=== PATIENT | female | born 1950 | race Caucasian/White ===

== ENCOUNTER 2016-06-08 11:17 | Emergency (ER) | payer OTHER, MEDICARE ==
[~2016-06-08] VITALS: Ht 167.6 cm; Wt 73.8 kg
[~2016-06-08 11:17] MED LIST: CHOL100010 PO; CIPR-255 PO; LOSA100T2 PO; LOSA100T26 PO; MAGN400T6 PO; MISCCAP80 PO
[2016-06-08 11:19] VITALS: Ht 167.6 cm; Wt 73.8 kg
--- NOTE | 2016-06-08 11:42 | EMERGENCY ROOM VISIT NOTE ---
History First contact with patient: 11:24 Chief Complaint: CHEST PAIN Stated Complaint: CP, TIGHTNESS, STOMACH/VOMITING History of Present Illness The patient is a 66 year old female who presents to the Emergency Room with complaints of intermittent chest pain over the past 2 days. The patient reports that she has had tightness in her chest and epigastric discomfort on and off for the past few days. She states that the pain tends to last for approximately 10 minutes when it occurs. She states it tends to be worse at night and does wake her up from sleep. She has felt bloated, but denies any changes in bowel movements or pain in her lower abdomen. She had 2 episodes of vomiting this morning. The patient rates the discomfort a 5/10. She has not been taking any medication for the pain. She reports she has had a decreased appetite. The patient denies any cardiac history, but does report that her mother had an WA at age 68 and her brother had an WA at age 55. The patient does not smoke. She does have a history of hypertension. She denies any diabetes or hyperlipidemia. The patient denies any shortness of breath, hematemesis, hematochezia, cough, upper respiratory symptoms, fevers or chills. Review of Systems A complete 10-point Review of Systems was discussed with the patient, with pertinent positives and negatives listed in the History of Present Illness. All remaining Review of Systems questions can be considered negative unless otherwise specified. Past Medical/Surgical History Medical Problems: (1) HTN (hypertension) Social History Smoking Status: Never Smoker Marital Status: Housing Status: lives with significant other Current/Historical Medications Scheduled Sepsjdt-Xgaiifwwg-Ulaw (Calcium & Magnesium + Zin 334-134-5 mg), 1 TAB PO DAILY Cholecalciferol (Vitamin D3), 2,000 UNITS PO DAILY Losartan Potassium & Hydrochlo (Losartan Potassium/Hydroc), 1 TAB PO QAM Losartan Potassium & Hydrochlo (Hyzaar), 0.5 TAB PO QPM Omeprazole (Prilosec), 40 MG PO DAILY Allergies Coded Allergies: No Known Allergies (Unverified , 12/09/09) Physical Exam Vital Signs Date Time Temp Pulse Resp B/P Pulse Ox O2 Delivery O2 Flow Rate FiO2 06/08/16 16:28 37.0 100 18 130/83 96 06/08/16 14:55 100 18 130/83 96 Room Air 06/08/16 12:52 78 13 151/87 96 Room Air 06/08/16 11:46 74 06/08/16 11:41 Room Air 06/08/16 11:41 Room Air 06/08/16 11:19 37.0 98 18 153/95 95 Room Air Physical Exam VITALS: Vitals are noted on the nurse's note and reviewed by myself. Vital signs stable. GENERAL: This is a 66-year-old female, in no acute distress, nondiaphoretic, well-developed well-nourished. SKIN: Capillary reflex less than 2 seconds. HEENT: Normocephalic. PERRLA. EOMI. Nares patent. Mucous membranes moist. Neck is supple without nuchal rigidity. HEART: Regular rate and rhythm without murmurs gallops or rubs. LUNGS: Clear to auscultation bilaterally without wheezes, rales or rhonchi. No retractions or accessory muscle use. ABDOMEN: Positive bowel sounds x 4. Soft, nondistended, nontender to palpation. NEURO: Patient was alert and oriented to person place and time. Medical Decision & Procedures ER Provider Diagnostic Interpretation: CHEST ONE VIEW PORTABLE CLINICAL HISTORY: chest pain dyspnea COMPARISON STUDY: No previous studies for comparison. FINDINGS: Lungs are clear. Diaphragms are smooth. No evidence for cardiac enlargement. IMPRESSION: Negative chest. Laboratory Results 06/08/16 11:50 Red Blood Count 4.59, Mean Corpuscular Volume 95.4, Mean Corpuscular Hemoglobin 32.7, Mean Corpuscular Hemoglobin Concent 34.2, Mean Platelet Volume 9.7, Neutrophils (%) (Auto) 77.6, Lymphocytes (%) (Auto) 12.9, Monocytes (%) (Auto) 8.6, Eosinophils (%) (Auto) 0.3, Basophils (%) (Auto) 0.3, Neutrophils # (Auto) 5.98, Lymphocytes # (Auto) 0.99, Monocytes # (Auto) 0.66, Eosinophils # (Auto) 0.02, Basophils # (Auto) 0.02 06/08/16 11:50 Test 06/08/16 11:50 06/08/16 11:52 06/08/16 15:40 White Blood Count 7.69 K/uL (4.8-10.8) Red Blood Count 4.59 M/uL (4.2-5.4) Hemoglobin 15.0 g/dL (12.0-16.0) Hematocrit 43.8 % (37-47) Mean Corpuscular Volume 95.4 fL (80-100) Mean Corpuscular Hemoglobin 32.7 pg (25-34) Mean Corpuscular Hemoglobin Concent 34.2 g/dl (32-36) Platelet Count 227 K/uL (130-400) Mean Platelet Volume 9.7 fL (7.4-10.4) Neutrophils (%) (Auto) 77.6 % Lymphocytes (%) (Auto) 12.9 % Monocytes (%) (Auto) 8.6 % Eosinophils (%) (Auto) 0.3 % Basophils (%) (Auto) 0.3 % Neutrophils # (Auto) 5.98 K/uL (1.4-6.5) Lymphocytes # (Auto) 0.99 K/uL (1.2-3.4) Monocytes # (Auto) 0.66 K/uL (0.11-0.59) Eosinophils # (Auto) 0.02 K/uL (0-0.5) Basophils # (Auto) 0.02 K/uL (0-0.2) RDW Standard Deviation 44.8 fL (36.4-46.3) RDW Coefficient of Variation 12.8 % (11.5-14.5) Immature Granulocyte % (Auto) 0.3 % Immature Granulocyte # (Auto) 0.02 K/uL (0.00-0.02) Anion Gap 7.0 mmol/L (3-11) Est Creatinine Clear Calc Drug Dose 65.1 ml/min Estimated GFR () 81.6 Estimated GFR (Non- 70.4 BUN/Creatinine Ratio 16.1 (10-20) Calcium Level 9.1 mg/dl (8.5-10.1) Total Bilirubin 0.9 mg/dl (0.2-1) Aspartate Amino Transf (AST/SGOT) 16 U/L (15-37) Alanine Aminotransferase (ALT/SGPT) 15 U/L (12-78) Alkaline Phosphatase 80 U/L (45-117) Total Protein 7.4 gm/dl (6.4-8.2) Albumin 3.9 gm/dl (3.4-5.0) Globulin 3.5 gm/dl (2.5-4.0) Albumin/Globulin Ratio 1.1 (0.9-2) Lipase 154 U/L (73-393) Bedside Troponin I 0.000 ng/ml (0-0.045) Urine Color DK YELLOW Urine Appearance CLEAR (CLEAR) Urine pH 6.5 (4.5-7.5) Urine Specific Bailey 1.025 (1.000-1.030) Urine Protein 1+ (NEG) Urine Glucose (UA) NEG (NEG) Urine Ketones 3+ (NEG) Urine Occult Blood NEG (NEG) Urine Nitrite NEG (NEG) Urine Bilirubin NEG (NEG) Urine Urobilinogen NEG (NEG) Urine Leukocyte Esterase TRACE (NEG) Urine WBC (Auto) 1-5 /hpf (0-5) Urine RBC (Auto) 5-10 /hpf (0-4) Urine Hyaline Casts (Auto) 5-10 /lpf (0-5) Urine Epithelial Cells (Auto) >30 /lpf (0-5) Urine Bacteria (Auto) NEG (NEG) Medications Administered Medications (Trade) Dose Ordered Sig/Delilah Route Start Time Stop Time Status Last Admin Dose Admin Perflutren Lipid Microsphere (Definity) 2 ml ONE ONCE IV 06/08/16 14:43 06/08/16 14:44 DC 06/08/16 14:43 2 ML Lidocaine HCl (Viscous Lidocaine 2% Soln) 20 ml STK-MED ONCE .ROUTE 06/08/16 15:21 06/08/16 15:25 DC 06/08/16 15:33 20 ML Al Hydroxide/Mg Hydroxide (Maalox Susp) 30 ml STK-MED ONCE .ROUTE 06/08/16 15:22 06/08/16 15:25 DC 06/08/16 15:32 30 ML ECG Rate (beats per minute): 87 Rhythm: normal sinus Findings: no acute ischemic change, no ectopy Change: no significant change (no change from ekg 12/09/09) Medical Decision Differential diagnosis includes acute coronary syndrome, pulmonary embolism, pneumothorax, pericarditis, myocarditis, endocarditis, anxiety, musculoskeletal pain, GERD, costochondritis, pneumonia, among others. The patient was evaluated as above. Labs were drawn and IV access was obtained. Imaging studies were performed and read by radiology as above. Stress echo was performed at cardiopulmonary lab under the supervision of Dr. Cade. The patient was reassessed multiple times during their stay in the emergency department and remained in stable condition. The patient is a 66-year-old female who presents today complaining of chest pain and epigastric discomfort. The patient did have an episode of vomiting this morning. Labs revealed no leukocytosis, anemia or concerning electrolyte abnormalities. Troponin was not elevated. EKG was interpreted by myself and showed a normal sinus rhythm without evidence of ischemia. The patient's symptoms are more suggestive of a gastritis or peptic ulcer disease than a cardiac source of the chest pain. However, given the patient's age and family history of cardiac disease, I did feel that further workup was necessary to rule out acute coronary syndrome. I did speak with Dr. Cade at [facility] cardiology, who agreed to perform a stress test on the patient prior to discharge. Stress test was performed without any events. The patient was given a GI cocktail for her symptoms. She will be treated with Prilosec and instructed to follow closely with her primary care provider. She was instructed to return here if she has worsening or any new/concerning symptoms. Based on the patient's presentation, lab results, and imaging studies, I feel the patient is stable for outpatient treatment. The patient was independently evaluated by Dr. Summers, ED attending physician, who agreed with my assessment and treatment plan. Discharge instructions were reviewed with the patient. The patient verbalized understanding of my assessment and treatment plan and was discharged home in good condition. Impression Primary Impression: Epigastric pain Additional Impression: Substernal chest pain Departure Information Dispostion Home / Self-Care Condition GOOD Prescriptions Omeprazole (PRILOSEC) 40 Mg Cap 40 MG PO DAILY for 14 Days, #14 CAP Prov: Kaycee Brito .DORA 06/08/16 Referrals Marti Dodge M.D. (PCP) Patient Instructions ED GERD, [facility] Additional Instructions You have been treated in the Emergency Department for your Non-Cardiac Chest Pain. Laboratory results and Imaging Studies have ruled out any acute cardiac or pulmonary cause of your chest pain. Prilosec as prescribed. [place] diet for the next few weeks. You should schedule a follow-up appointment with your Primary Care Provider in 2 -3 days for further evaluation from today's Emergency Department visit. Return to the Emergency Department if your current symptoms worsen despite treatment course outlined above, or if you develop any of the following symptoms : worsening chest pain, associated jaw/arm pain, nausea, dizziness, shortness of breath, bloody cough, or fainting. Problem Qualifiers
[2016-06-08] MEDS ORDERED: CHOL2000 PO (11:59)
[2016-06-08] MEDS ORDERED: CALC-478 PO (12:00)
[2016-06-08 12:01] LABS: BASO % 0.3 %; BASO ABS # 0.02 K/uL (0-0.2); COMPLETE YES; EOS % 0.3 %; HEMATOCRIT 43.8 % (37-47); IG% 0.3 %; LYMPH % 12.9 %; LYMPH ABS # 0.99 K/uL (1.2-3.4); MEAN CELL VOLUME 95.4 fL (80-100); MEAN CORPUSCULAR HEMOGLOBIN 32.7 pg (25-34); MEAN CORPUSCULAR HGB CONC 34.2 g/dl (32-36); MEAN PLATELET VOLUME 9.7 fL (7.4-10.4); MONO % 8.6 %; NEUT % 77.6 %; PLATELET COUNT 227 K/uL (130-400); RED BLOOD COUNT 4.59 M/uL (4.2-5.4); WHITE BLOOD COUNT 7.69 K/uL (4.8-10.8)
[2016-06-08 12:21] LABS: BUN/CREATININE RATIO 16.1 (10-20); CALCIUM 9.1 mg/dl (8.5-10.1); CREATININE 0.85 mg/dl (0.60-1.20); POTASSIUM 4.5 mmol/L (3.5-5.1)
[2016-06-08 12:24] LABS: ALB/GLOB RATIO 1.1 (0.9-2)
--- NOTE | 2016-06-08 12:28 | DIAGNOSTIC IMAGING REPORT ---
CHEST ONE VIEW PORTABLE CLINICAL HISTORY: chest pain dyspnea COMPARISON STUDY: No previous studies for comparison. FINDINGS: Lungs are clear. Diaphragms are smooth. No evidence for cardiac enlargement. IMPRESSION: Negative chest. Electronically signed by: Nickolas Cabrales M.D. 06/08/2016 12:27 PM Dictated Date/Time: 06/08/2016 12:27 PM
[2016-06-08] MEDS ORDERED: PERFLUTREN LIPID MICROSPHERE (DEFINITY) IV ONE (14:43)
[2016-06-08] MEDS ORDERED: GI COCKTAIL PO STA (14:57)
[2016-06-08] MEDS ORDERED: LIDOCAINE HCL 2% VISC SOLN 20 ML UDC ONE (15:21)
[2016-06-08] MEDS ORDERED: ALUMINUM/MAGNESIUM SUSP 30 ML UDC ONE (15:22)
--- NOTE | 2016-06-08 15:58 | EMERGENCY ROOM VISIT NOTE ---
ED Visit Note First contact with patient: 11:24 Patient was seen by our PA/SENIOR CREDIT ANALYST. I was involved in the patient's care and did evaluate the patient myself. I was involved in the care throughout the ER stay. The patient presents with epigastric and chest pain. She has had some nausea and vomiting. Cardiac workup here was benign. She underwent a stress test that was unremarkable for cardiac ischemia. She will be treated for gastritis and possible reflux. She can be discharged home.
[2016-06-08] MEDS ORDERED: OMEP40CA41 PO ×2 (16:11→16:12)
[2016-06-08 16:17] LABS: URINE APPEARANCE CLEAR (CLEAR); URINE BILIRUBIN NEG (NEG); URINE COLOR DK YELLOW; URINE EPITHELIAL CELL AUTO >30 /lpf (0-5); URINE NITRITE NEG (NEG); URINE PH 6.5 (4.5-7.5); URINE SPECIFIC GRAVITY 1.025 (1.000-1.030); UROBILINOGEN NEG (NEG); ZZUR CULT IF INDIC CLEAN CATCH NO
[2016-06-08 16:20] LABS: MANUAL MICROSCOPIC REQUIRED? NO; REVIEW REQ? NO
[2016-06-08 16:28] VITALS: BP 130/83; PULSE 100; TEMP 37; O2SAT 96
--- NOTE | 2016-06-09 08:45 | EXERCISE STRESS ECHO ---
*NOTICE TO RECEIVING [employer] This information is strictly Confidential and protected under [place] law. [place] law prohibits you from making any further disclosure of this information unless further disclosure is expressly permitted by the written consent of the person to whom it pertains or is authorized by law. A general authorization for the release of medical or other information is not sufficient for this purpose. Hospital accepts no responsibility if the information is made available to any other person, INCLUDING THE PATIENT. Interpretation Summary * Name: DARIO SANTACRUZ Study Date: 06/08/2016 01:07 PM BP: 145/81 mmHg * Patient [facility]: [facility] HR: 75 * : 1950 (M/d/yyyy) Gender: Female Height: 66 in * Age: 66 yrs Ethnicity: [place] Weight: 162 lb * Ordering Physician: Kaycee Brito * Referring Physician: JAYNE * Performed By: Daphnie Sauceda RDCS * * Reason For Study: CHEST PAIN * BSA: 1.8 m2 * History: CHEST PAIN, NAUSEA * -- Conclusions -- * Nonischemic exercise stress echocardiogram. * No arrhythmias. * Normal HR and BP response to exercise. * Markedly reduced exercise tolerance. * At rest, ormal LV chamber size and wall thickness. * Normal systolic function, EF 55-60% * No segmental left ventricular wall motion abnormalities are noted. * Grade II diastolic dysfunction. * No significant valvular pathology. Procedure Details * ECHOEX, CPT #07310 * A contrast injection of Definity was performed to improve assessment of LV function. * Contrast was injected into an intravenous site in the left arm. * One vial of Definity ultrasound contrast was diluted in normal saline to a total volume of 10 ml. A total of '4' ml of solution was administered during imaging. * Lot # [id number] of Definity utilized for procedure. * Expiration date APR 15. * The attending nurse who injected the contrast agent was BUDDY LEWIS RN. Left Ventricle * The left ventricle is normal in size. * There is normal left ventricular wall thickness. * Ejection Fraction = 55-60%. * Left ventricular systolic function is normal. * No segmental left ventricular wall motion abnormalities are noted. * Resting wall motion: Normal. Stress wall motion: Appropriate increase in Left ventricular systolic function and decrease in cavity size. No stress induced segmental wall motion abnormalities. Right Ventricle * The right ventricular cavity size is normal (basal dimension <4.2 cm in right ventricular apical 4-chamber view). * The right ventricular systolic function is normal as assessed by tricuspid annular plane systolic excursion (TAPSE) (normal >1.5 cm). Atria * The left atrial size is normal. * Right atrial size is normal. * No ASD detected; PFO is not assessed. Mitral Valve * The mitral valve is normal in structure and function. Tricuspid Valve * The tricuspid valve is normal in structure and function. Aortic Valve * The aortic valve is normal in structure and function. Pulmonic Valve * The pulmonary valve is not well seen, but the Doppler examination is normal without significant regurgitation or stenosis. Great Vessels * The aortic root is normal size. Pericardium * There is no pericardial effusion. Stress Parameters * Normal baseline electrocardiogram. * Stress ECG: No ST changes. No arrhythmias. * No arrhythmia were noted with stress. * The stress portion of this study was personally supervised by the undersigned interpreting physician. * Rest heart rate was '75' BPM. * Rest blood pressure was '145/81' * Maximum heart rate achieved was 160 bpm. * Maximum heart rate was 105 % of maximum age-predicted heart rate. * Maximum blood pressure was '187/84' * Total exercise time was '3:20' * Maximum exercise MET level achieved was '5.00' METS * Maximum treadmill speed was '2.50' miles per hour. * Maximum treadmill elevation was '12.00'% grade. * Exercise was terminated due to 'ACHIEVING TARGET HR' Left Ventricular Diastolic Function * Diastolic dysfunction, Grade II (pseudonormalization pattern). MMode 2D Measurements and Calculations IVSd 0.76 cm IVSs 1.3 cm LVIDd 4.5 cm LVIDs 3.4 cm LVPWd 0.66 cm LVPWs 1.3 cm IVS/LVPW 1.2 FS 25.3 % EDV(Teich) 94.7 ml ESV(Teich) 47.3 ml EF(Teich) 50.1 % EDV(cubed) 94.0 ml ESV(cubed) 39.1 ml EF(cubed) 58.4 % % IVS thick 65.7 % % LVPW thick 97.5 % LV mass(C)d 99.7 grams LV mass(C)dI 54.5 grams/m\S\2 LV mass(C)s 144.9 grams LV mass(C)sI 79.2 grams/m\S\2 SV(Teich) 47.4 ml SI(Teich) 25.9 ml/m\S\2 SV(cubed) 54.9 ml SI(cubed) 30.0 ml/m\S\2 Ao root diam 2.8 cm Ao root area 6.0 cm\S\2 LA dimension 3.3 cm LA/Ao 1.2 LVAd ap4 21.8 cm\S\2 LVLd ap4 6.8 cm EDV(MOD-sp4) 59.0 ml EDV(sp4-el) 59.4 ml LVAs ap4 13.7 cm\S\2 LVLs ap4 5.6 cm ESV(MOD-sp4) 28.9 ml ESV(sp4-el) 28.7 ml EF(MOD-sp4) 51.0 % EF(sp4-el) 51.7 % LVAd ap2 22.1 cm\S\2 LVLd ap2 7.1 cm EDV(MOD-sp2) 56.4 ml EDV(sp2-el) 58.4 ml LVAs ap2 13.4 cm\S\2 LVLs ap2 6.0 cm ESV(MOD-sp2) 26.9 ml ESV(sp2-el) 25.2 ml EF(MOD-sp2) 52.3 % EF(sp2-el) 56.9 % LVLd %diff 4.4 % EDV(MOD-bp) 58.1 ml LVLs %diff 7.2 % ESV(MOD-bp) 28.4 ml EF(MOD-bp) 51.1 % SV(MOD-sp4) 30.1 ml SI(MOD-sp4) 16.5 ml/m\S\2 SV(MOD-sp2) 29.5 ml SI(MOD-sp2) 16.1 ml/m\S\2 SV(MOD-bp) 29.7 ml SI(MOD-bp) 16.2 ml/m\S\2 SV(sp4-el) 30.7 ml SI(sp4-el) 16.8 ml/m\S\2 SV(sp2-el) 33.3 ml SI(sp2-el) 18.2 ml/m\S\2
== END 2016-06-08 16:33 | disposition home or self-care (01) ==
LOC: C.EDB 11:18 → C.EDC 16:33
DX: R07.2 Precordial pain (principal); R10.13 Epigastric pain; I10 Essential (primary) hypertension; Z79.899 Other long term (current) drug therapy

== ENCOUNTER → 2016-07-07 | Outpatient (CLI) | payer OTHER, MEDICARE ==
[~2016-07-07] MED LIST changes: +ASPI325T45 PO; +CALC-478 PO; -CHOL100010 PO; +CHOL2000 PO; -CIPR-255 PO; +HYZ/10015 PO; +HYZ/50125 PO; -LOSA100T26 PO; +LOSA100T33 PO; -MAGN400T6 PO; -MISCCAP80 PO; +MULT-506 PO; +NRV5 PO
== END | disposition home or self-care (01) ==
LOC: C.LAB 07:25
PROVIDERS: ATTEND Family Medicine
DX: R53.81 Other malaise (principal)

== ENCOUNTER 2017-02-15 08:36 | Observation (INO) | payer OTHER, MEDICARE ==
[~2017-02-15] VITALS: Ht 162.6 cm; Wt 76.1 kg
[~2017-02-15 08:36] MED LIST changes: -ASPI325T45 PO; -HYZ/10015 PO; -HYZ/50125 PO; -MULT-506 PO; -NRV5 PO
[2017-02-15 09:44] LABS: BASO % 0.7 %; BASO ABS # 0.03 K/uL (0-0.2); COMPLETE YES; EOS % 3.2 %; HEMATOCRIT 41.8 % (37-47); IG% 0.2 %; LYMPH % 41.7 %; MEAN CELL VOLUME 97.2 fL (80-100); MEAN CORPUSCULAR HEMOGLOBIN 32.8 pg (25-34); MEAN CORPUSCULAR HGB CONC 33.7 g/dl (32-36); MEAN PLATELET VOLUME 9.8 fL (7.4-10.4); MONO % 10.6 %; NEUT % 43.6 %; PLATELET COUNT 219 K/uL (130-400); WHITE BLOOD COUNT 4.32 K/uL (4.8-10.8)
[2017-02-15 09:51] LABS: BLOOD UREA NITROGEN 13 mg/dl (7-18); CALCIUM 8.8 mg/dl (8.5-10.1); CARBON DIOXIDE 26 mmol/L (21-32); CHLORIDE 100 mmol/L (98-107); CREATININE 0.79 mg/dl (0.60-1.20); GLUCOSE 99 mg/dl (70-99); POTASSIUM 3.5 mmol/L (3.5-5.1); SODIUM 135 mmol/L (136-145)
[2017-02-15] MEDS ORDERED: MULT-506 PO (10:17)
[2017-02-15] MEDS ORDERED: ASPI325T45 PO (10:18)
[2017-02-15] MEDS ORDERED: HYZ/10015 PO (10:18)
[2017-02-15] MEDS ORDERED: HYZ/50125 PO (10:18)
--- NOTE | 2017-02-15 10:45 | DIAGNOSTIC IMAGING REPORT ---
CHEST ONE VIEW PORTABLE HISTORY: Atypical Chest Pain COMPARISON: Chest 06/08/2016. FINDINGS: The lungs are clear. Cardiac silhouette is normal in size. No pleural effusions. No pneumothorax. IMPRESSION: No acute process. Electronically signed by: Chicho Edmonds M.D. 02/15/2017 10:43 AM Dictated Date/Time: 02/15/2017 10:42 AM
[2017-02-15] MEDS ORDERED: ACETAMINOPHEN 325 MG TAB PO PRN (11:45)
[2017-02-15] MEDS ORDERED: ONDANSETRON INJ 2 MG/ML 2 ML VIAL IV PRN (11:45)
--- NOTE | 2017-02-15 11:54 | History and Physical ---
History & Physical Date & Time of Service: Feb 15, 2017 at 11:47 Chief Complaint: Chest Pain Primary Care Physician: Marti Dodge M.D. History of Present Illness Source: patient 66 year old F with history of HTN on Losartan-HCTZ for hypertension. Was seen in May 2016 for chest pain and epigastric pain with below unremarkable stress test Nonischemic exercise stress echocardiogram. No arrhythmias. Normal HR and BP response to exercise. Markedly reduced exercise tolerance. At rest, normal LV chamber size and wall thickness. Normal systolic function, EF 55-60% No segmental left ventricular wall motion abnormalities are noted. Grade II diastolic dysfunction. No significant valvular pathology Patient returns to the ED today after experiencing left chest pain beneath left breast. Patient also reports she had 4 alcoholic beverages yesterday night for a celebration and this alcohol use is not typically for her. When she measured her blood pressure, it was elevated. She took 2 aspirins and did not miss her blood pressure medications. Left sided chest pain resolved in 20 minutes as per patient. Denies palpitations or shortness of breath when she had pain symptoms. Presented to the ED with blood pressure 153/95., HR 98 HR. EKG 91 beats per minute . Sinus rhythm with occasional Premature ventricular complexes Otherwise normal EKG. Troponin at 9 AM negative. CXR The lungs are clear. Cardiac silhouette is normal in size. No pleural effusions. No pneumothorax. Patient seen by hospitalist medical team. Denies chest pain at present. Breathing comfortably on room air. Patient reports that she is trying to return home today to take care of ailing family member. She agrees for some further workup Past Medical/Surgical History Medical Problems: (1) HTN (hypertension) Status: Chronic Surgical Problems: (1) History of appendectomy Status: Resolved Family History FH: heart disease Hypertension Social History Smoking Status: Never Smoker Alcohol Use: 4 alcoholic drinks yesterday Marital Status: Immunizations History of Influenza Vaccine: No History of Tetanus Vaccine?: Yes Tetanus Immunization Date: Dec 09, 2001 History of Pneumococcal: No History of Hepatitis B Vaccine: No Multi-Drug Resistant Organisms History of MDRO: No Allergies Coded Allergies: Cat Dander (Unverified Allergy, Mild, , 02/15/17) Maple Tree (Unverified Allergy, Mild, , 02/15/17) Home Medications Scheduled Aspirin (Aspirin), 650 MG PO UD Jgdblwf-Zmnwgannu-Rphc (Calcium & Magnesium + Zin 334-134-5 mg), 1 TAB PO DAILY Cholecalciferol (Vitamin D3), 2,000 UNITS PO DAILY Hctz/Losartan (Hyzaar 25MG/100MG), 1 TAB PO DAILY Hctz/Losartan (Hyzaar 12.5MG/50MG), 1 TAB PO HS Multivitamin (Multivitamin), 1 TAB PO DAILY Review of Systems Constitutional: No fever Eyes: No worsening of vision ENT: No unusual epistaxis, No nasal symptoms, No sore throat, No trouble swallowing Respiratory: No cough, No wheezing, No shortness of breath Cardiovascular: + chest pain, No edema, No palpitations Abdomen: No pain, No nausea, No vomiting, No diarrhea, No constipation Musculoskeletal: No joint pain, No muscle pain, No swelling, No calf pain Genitourinary - Female: No dysuria Neurologic: No numbness/tingling Psychiatric: No substance abuse Endocrine: No fatigue Hematologic / Lymphatic: No abnormal bleeding/bruising, No clotting problems Integumentary: No rash, No itch Physical Exam Vital Signs Date Time Temp Pulse Resp B/P (MAP) Pulse Ox O2 Delivery O2 Flow Rate FiO2 02/15/17 10:38 76 18 127/74 97 Room Air 02/15/17 09:05 77 02/15/17 09:04 87 18 133/82 97 Room Air 02/15/17 09:00 96 Room Air 02/15/17 08:50 36.5 94 18 191/80 99 Room Air General Appearance: no apparent distress Head: normocephalic, atraumatic Eyes: normal inspection, EOMI, sclerae normal ENT: normal ENT inspection, hearing grossly normal, pharynx normal Neck: supple, no JVD, trachea midline Respiratory/Chest: chest non-tender, lungs clear, normal breath sounds, no respiratory distress, no accessory muscle use Cardiovascular: regular rate, rhythm, no edema, no JVD, no murmur, normal peripheral pulses Abdomen/GI: normal bowel sounds, non tender, soft Back: normal inspection, no CVA tenderness, no muscle spasm, normal range of motion Extremities/Musculoskelatal: normal inspection, no calf tenderness, normal capillary refill, no pedal edema, normal range of motion Neurologic/Psych: no motor/sensory deficits, alert, normal reflexes Skin: normal color, warm/dry, no rash Diagnostics Laboratory Results Results Past 24 Hours Test 02/15/17 09:00 Range/Units White Blood Count 4.32 4.8-10.8 K/uL Red Blood Count 4.30 4.2-5.4 M/uL Hemoglobin 14.1 12.0-16.0 g/dL Hematocrit 41.8 37-47 % Mean Corpuscular Volume 97.2 80-100 fL Mean Corpuscular Hemoglobin 32.8 25-34 pg Mean Corpuscular Hemoglobin Concent 33.7 32-36 g/dl Platelet Count 219 130-400 K/uL Mean Platelet Volume 9.8 7.4-10.4 fL Neutrophils (%) (Auto) 43.6 % Lymphocytes (%) (Auto) 41.7 % Monocytes (%) (Auto) 10.6 % Eosinophils (%) (Auto) 3.2 % Basophils (%) (Auto) 0.7 % Neutrophils # (Auto) 1.88 1.4-6.5 K/uL Lymphocytes # (Auto) 1.80 1.2-3.4 K/uL Monocytes # (Auto) 0.46 0.11-0.59 K/uL Eosinophils # (Auto) 0.14 0-0.5 K/uL Basophils # (Auto) 0.03 0-0.2 K/uL RDW Standard Deviation 44.2 36.4-46.3 fL RDW Coefficient of Variation 12.4 11.5-14.5 % Immature Granulocyte % (Auto) 0.2 % Immature Granulocyte # (Auto) 0.01 0.00-0.02 K/uL D-Dimer 270 0-500 ug/L FEU Sodium Level 135 136-145 mmol/L Potassium Level 3.5 3.5-5.1 mmol/L Chloride Level 100 98-107 mmol/L Carbon Dioxide Level 26 21-32 mmol/L Anion Gap 10.0 3-11 mmol/L Blood Urea Nitrogen 13 7-18 mg/dl Creatinine 0.79 0.60-1.20 mg/dl Est Creatinine Clear Calc Drug Dose 68.1 ml/min Estimated GFR () 89.1 Estimated GFR (Non- 76.9 BUN/Creatinine Ratio 16.0 10-20 Random Glucose 99 70-99 mg/dl Calcium Level 8.8 8.5-10.1 mg/dl Total Creatine Kinase 81 26-192 U/L Creatine Kinase MB 0.8 0.5-3.6 ng/ml Creatine Kinase MB Ratio 1.0 0-3.0 Troponin I < 0.015 0-0.045 ng/ml Diagnostic Radiology The lungs are clear. Cardiac silhouette is normal in size. No pleural effusions. No pneumothorax CXR normal EKG EKG 91 beats per minute . Sinus rhythm with occasional Premature ventricular complexes Otherwise normal EKG Normal EKG Impression Assessment and Plan 66 year old F with history of HTN on Losartan-HCTZ for hypertension. Was seen in May 2016 for chest pain and epigastric pain with below unremarkable stress test Nonischemic exercise stress echocardiogram. No arrhythmias. Normal HR and BP response to exercise. Markedly reduced exercise tolerance. At rest, normal LV chamber size and wall thickness. Normal systolic function, EF 55-60% No segmental left ventricular wall motion abnormalities are noted. Grade II diastolic dysfunction. No significant valvular pathology Patient returns to the ED today after experiencing left chest pain beneath left breast. Patient also reports she had 4 alcoholic beverages yesterday night for a celebration and this alcohol use is not typically for her. When she measured her blood pressure, it was elevated. She took 2 aspirins and did not miss her blood pressure medications. Left sided chest pain resolved in 20 minutes as per patient. Denies palpitations or shortness of breath when she had pain symptoms. Presented to the ED with blood pressure 153/95., HR 98 HR. EKG 91 beats per minute . Sinus rhythm with occasional Premature ventricular complexes Otherwise normal EKG. Troponin at 9 AM negative. CXR The lungs are clear. Cardiac silhouette is normal in size. No pleural effusions. No pneumothorax. Patient seen by hospitalist medical team. Denies chest pain at present. Breathing comfortably on room air. Patient reports that she is trying to return home today to take care of ailing family member. She agrees for some further workup Plan: Will place patient under telemetry for observation. First troponin troponin negative, First EKG appears normal. Will obtain second troponin. Will try to obtain stress test in order to expedite cardiac workup for rule out ACS. Will give 40 meq potassium PO for serum potassium 3.5 Patient on Losartan-HCTZ daily. Patient already took this medication before ED presentation. Continue tomorrow as once per day if patient continues to stay in the hospital Full Code Level of Care Telemetry Resuscitation Status FULL RESUSCITATION VTE Prophylaxis VTE Risk Assessment Done? Y/N: Yes Risk Level: Moderate
[2017-02-15 11:59] VITALS: O2SAT 99
[2017-02-15] MEDS ORDERED: POTASSIUM CHLORIDE 20 MEQ TABCR PO STA (12:03)
[2017-02-15 12:35] VITALS: BP 143/99; PULSE 84; TEMP 36.6; O2SAT 98
[2017-02-15 13:00] VITALS: BP 143/99; PULSE 84; TEMP 36.6; Ht 162.6 cm; Wt 76.1 kg
[2017-02-15 14:31] LABS: CKMB/CK RATIO 1.1 (0-3.0)
--- NOTE | 2017-02-15 14:44 | EMERGENCY ROOM VISIT NOTE ---
History Report prepared by Aliza: Daphnie Grier Under the Supervision of: Dr. Alireza Quinn D.O. First contact with patient: 09:09 Chief Complaint: CHEST PAIN Stated Complaint: CHEST PAIN Nursing Triage Summary: pt reports chest pain started at 0715 unknown if it awoke her. pain radiates to left side of face slight sensation. unable to take deep breath with pain this am was over left breast area. took 2 asa 325mg this am [employer]. History of Present Illness The patient is a 66 year old female who presents to the Emergency Room with complaints of resolved left sided chest pain that began around 0730 this morning. The patient states that she woke up and had the pain, but is unsure if the pain woke her out of sleep. She describes her discomfort as a squeezing and stabbing pain. The patient states that she found that her blood pressure was elevated more than normal. She states that she took two 324 mg aspirin prior to arrival. The patient reports tingling to the left side of her face. She states that her pain was alleviated with the aspirin. She denies any pain in her arm, but notes tingling to her fingers. The patient reports tingling in her left face and jaw. She states that due to the pain she could not take a deep breath. The patient denies any recent travel, history of blood clots, or smoking. She reports a family history of heart disease. Pt denies headache, change in vision, fevers, nausea, vomiting, diarrhea, pain with urination, and melena. Source of History: patient Onset: 0730 this morning Position: chest (left) Quality: stabbing, other (squeezing) Timing: resolved Modifying Factors (Relieving): other (aspirin) Note: Associated symptoms: tingling in left face and fingers Review of Systems See HPI for pertinent positives & negatives. A total of 10 systems reviewed and were otherwise negative. Past Medical & Surgical Medical Problems: (1) HTN (hypertension) Surgical Problems: (1) History of appendectomy Family History FH: heart disease Hypertension Social History Smoking Status: Never Smoker Smokeless Tobacco Use: No Alcohol Use: occasionally Marital Status: Housing Status: lives with significant other Occupation Status: employed Current/Historical Medications Scheduled Aspirin (Aspirin), 650 MG PO UD Fdklbvs-Ymvydkixz-Ymcj (Calcium & Magnesium + Zin 334-134-5 mg), 1 TAB PO DAILY Cholecalciferol (Vitamin D3), 2,000 UNITS PO DAILY Hctz/Losartan (Hyzaar 25MG/100MG), 1 TAB PO DAILY Hctz/Losartan (Hyzaar 12.5MG/50MG), 1 TAB PO HS Multivitamin (Multivitamin), 1 TAB PO DAILY Allergies Coded Allergies: Cat Dander (Unverified Allergy, Mild, , 02/15/17) Maple Tree (Unverified Allergy, Mild, , 02/15/17) Physical Exam Vital Signs Date Time Temp Pulse Resp B/P (MAP) Pulse Ox O2 Delivery O2 Flow Rate FiO2 02/15/17 11:59 83 18 161/63 99 Room Air 02/15/17 10:38 76 18 127/74 97 Room Air 02/15/17 09:05 77 02/15/17 09:04 87 18 133/82 97 Room Air 02/15/17 09:00 96 Room Air 02/15/17 08:50 36.5 94 18 191/80 99 Room Air Physical Exam GENERAL: Sitting up in bed, alert, well appearing, well nourished, no distress, non-toxic EYE EXAM: normal conjunctiva. OROPHARYNX: no exudate, no erythema, lips, buccal mucosa, and tongue normal and mucous membranes are moist NECK: supple, no nuchal rigidity, no adenopathy, non-tender CHEST: No reproducible anterior chest wall pain. LUNGS: Clear to auscultation. Normal chest wall mechanics HEART: no murmurs, S1 normal and S2 normal ABDOMEN: abdomen soft, non-tender, normo-active bowel sounds, no masses, no rebound or guarding. BACK: Back is symmetrical on inspection and there is no deformity, no midline tenderness, no CVA tenderness. SKIN: no rashes and no bruising UPPER EXTREMITIES: upper extremities are grossly normal. Radial pulses are equal bilateral LOWER EXTREMITIES: No pitting edema. Calves are equal bilateral NEURO EXAM: Normal sensorium, cranial nerves II-XII grossly intact, normal speech, no gross weakness of arms, no gross weakness of legs. Medical Decision & Procedures ER Provider Diagnostic Interpretation: Radiology results as stated below per my review and the radiologist's interpretation: CHEST ONE VIEW PORTABLE HISTORY: Atypical Chest Pain COMPARISON: Chest 06/08/2016. FINDINGS: The lungs are clear. Cardiac silhouette is normal in size. No pleural effusions. No pneumothorax. IMPRESSION: No acute process. Electronically signed by: Chicho Edmonds M.D. 02/15/2017 10:43 AM Dictated Date/Time: 02/15/2017 10:42 AM Laboratory Results 02/15/17 09:00 Red Blood Count 4.30, Mean Corpuscular Volume 97.2, Mean Corpuscular Hemoglobin 32.8, Mean Corpuscular Hemoglobin Concent 33.7, Mean Platelet Volume 9.8, Neutrophils (%) (Auto) 43.6, Lymphocytes (%) (Auto) 41.7, Monocytes (%) (Auto) 10.6, Eosinophils (%) (Auto) 3.2, Basophils (%) (Auto) 0.7, Neutrophils # (Auto ) 1.88, Lymphocytes # (Auto) 1.80, Monocytes # (Auto) 0.46, Eosinophils # (Auto ) 0.14, Basophils # (Auto) 0.03 02/15/17 09:00 Test 02/15/17 09:00 White Blood Count 4.32 K/uL (4.8-10.8) Red Blood Count 4.30 M/uL (4.2-5.4) Hemoglobin 14.1 g/dL (12.0-16.0) Hematocrit 41.8 % (37-47) Mean Corpuscular Volume 97.2 fL (80-100) Mean Corpuscular Hemoglobin 32.8 pg (25-34) Mean Corpuscular Hemoglobin Concent 33.7 g/dl (32-36) Platelet Count 219 K/uL (130-400) Mean Platelet Volume 9.8 fL (7.4-10.4) Neutrophils (%) (Auto) 43.6 % Lymphocytes (%) (Auto) 41.7 % Monocytes (%) (Auto) 10.6 % Eosinophils (%) (Auto) 3.2 % Basophils (%) (Auto) 0.7 % Neutrophils # (Auto) 1.88 K/uL (1.4-6.5) Lymphocytes # (Auto) 1.80 K/uL (1.2-3.4) Monocytes # (Auto) 0.46 K/uL (0.11-0.59) Eosinophils # (Auto) 0.14 K/uL (0-0.5) Basophils # (Auto) 0.03 K/uL (0-0.2) RDW Standard Deviation 44.2 fL (36.4-46.3) RDW Coefficient of Variation 12.4 % (11.5-14.5) Immature Granulocyte % (Auto) 0.2 % Immature Granulocyte # (Auto) 0.01 K/uL (0.00-0.02) D-Dimer 270 ug/L FEU (0-500) Anion Gap 10.0 mmol/L (3-11) Est Creatinine Clear Calc Drug Dose 68.1 ml/min Estimated GFR () 89.1 Estimated GFR (Non- 76.9 BUN/Creatinine Ratio 16.0 (10-20) Calcium Level 8.8 mg/dl (8.5-10.1) Laboratory results per my review. Medications Administered Medications (Trade) Dose Ordered Sig/Delilah Route Start Time Stop Time Status Last Admin Dose Admin Potassium Chloride (Klor-Con Tab) 40 meq NOW STAT PO 02/15/17 12:03 02/15/17 12:38 DC 02/15/17 13:13 40 MEQ ECG Indication: chest pain Rate (beats per minute): 91 Rhythm: sinus rhythm Findings: PVC, left axis deviation, other (normal intervals) Comparison ECG Date: 06/08/16 ED Course ED COURSE: Vital signs were reviewed and showed hypertesnive The patients medical record was reviewed The above diagnostic studies were performed and reviewed. ED treatments and interventions as stated above. 0919: The patient was evaluated in room B4B. A complete history and physical examination was performed. 1037: Upon reevaluation, the patient is resting comfortably.I discussed my findings with the patient and she understands and agrees with the treatment plan. Based on the patients age, coexisting illnesses, exam and lab findings the decision to treat as an inpatient was made. The patient remained stable while under my care. The patient will be evaluated for further management. 1051: I discussed the patients case with Kandis Ludwig. She is going to evaluate the patient for further treatment. Medical Decision Differential diagnoses includes but is not limited to acute coronary syndrome, myocardial infarction, pericarditis, pulmonary embolus, aortic dissection, pneumonia, pneumothorax, musculoskeletal, shingles, esophageal. Patient is a 66-year-old female who presents to ER for chest pain associated with left arm pain and left facial pain. Patient notes she checked her blood pressure and was in the 200s. She took a extra tablet losartan. She describes pain as a squeezing pain. Does have a history of hypertension. No previous CAD. EKG shows no focal changes. CBC along with BMP and troponin was negative. D-dimer was negative. Patient was updated bedside. She is admitted to internal medicine for further workup following an unremarkable chest x-ray. Medication Reconcilliation Current Medication List: was personally reviewed by me Blood Pressure Screening Patient's blood pressure: Elevated blood pressure Blood pressure disposition: Elevated BP felt to be situational, Did not require urgent referral Consults Time Called: 1044 Consulting Physician: Kandis Ludwig Returned Call: 1051 I discussed the patients case with Kandis Ludwig. She is going to evaluate the patient for further treatment. Impression Primary Impression: Precordial chest pain Scribe Attestation The scribe's documentation has been prepared under my direction and personally reviewed by me in its entirety. I confirm that the note above accurately reflects all work, treatment, procedures, and medical decision making performed by me. Departure Information Dispostion Being Evaluated By Hospitalist Referrals Marti Dodge M.D. (PCP)
[2017-02-15] MEDS ORDERED: PNEUMOCOCCAL ADMINISTRATION CHARGE ONE (16:00)
[2017-02-15] MEDS ORDERED: PNEUMOCOCCAL POLYSACCHARIDES 25 MCG/0.5 ML VIAL/SYR IM. ONE (16:00)
--- NOTE | 2017-02-15 16:38 | Cardiology Consultation ---
Cardiology Consultation Date of Consultation: Feb 15, 2017 History of Present Illness Patient is a 66 year old female seen in cardiology consultation per the request of Dr. Rod Mclain for the evaluation of chest discomfort. The patient's primary care provider is Dr. Marti Dodge [facility]. The patient does not routinely follow with cardiology. She is a past medical history of hypertension for which she takes losartan and hydrochlorothiazide. She was in her normal state of health this morning until she woke up from sleep and noticed a discomfort at the top of her left breast. She felt as if she had difficulty taking a deep breath in. She took her blood pressure and it was elevated compared to her typical baseline. She subsequently presented to the emergency room for further evaluation. Her initial blood pressure is 191/80. His subsequent improved on additional measurements. EKG performed this morning 02/15/17 at 8:45 AM revealed normal sinus rhythm at 91 bpm with occasional PVCs, no significant ST changes. Past Medical/Surgical History Problem List: Medical Problems: (1) HTN (hypertension) Surgical Problems: (1) History of appendectomy History Social History: She is a nonsmoker. She drinks alcohol occasionally, including for occult beverages yesterday. She is , and she cares for her spouse who is ill. Family History: Family history of heart disease, details unknown Review Of Systems See above for pertinent positives & negatives. A total of 10 systems reviewed and were otherwise negative. Allergies Coded Allergies: Cat Dander (Unverified Allergy, Mild, , 02/15/17) Maple Tree (Unverified Allergy, Mild, , 02/15/17) Medications Reported Home Medications Medications Dose Route/Sig Max Daily Dose Days Date Category Aspirin 325 Mg Tab 650 Mg PO UD 02/15/17 Reported Hyzaar 12.5MG/50MG (HCTZ/Losartan Potassium) Tab 1 Tab PO HS 02/15/17 Reported Hyzaar 25MG/100MG (HCTZ/Losartan Potassium) Tab 1 Tab PO DAILY 02/15/17 Reported Multivitamin (Multivitamins) Tab 1 Tab PO DAILY 02/15/17 Reported Calcium & Magnesium + Zin 334-134-5 mg (Lsiymhg-Nbouoltde-Wmva) 1 Tab Tab 1 Tab PO DAILY 06/08/16 Reported Vitamin D3 (Cholecalciferol) 2,000 Unit Cap 2,000 Units PO DAILY 06/08/16 Reported Physical Exam Vital Signs (Last 8hrs): Last 8 Hrs Date Time Temp Pulse Resp B/P (MAP) Pulse Ox O2 Delivery O2 Flow Rate FiO2 02/15/17 13:00 36.6 84 18 143/99 Room Air 02/15/17 12:35 36.6 84 18 143/99 (114) 98 Room Air 02/15/17 11:59 83 18 161/63 99 Room Air 02/15/17 10:38 76 18 127/74 97 Room Air 02/15/17 09:05 77 02/15/17 09:04 87 18 133/82 97 Room Air 02/15/17 09:00 96 Room Air 02/15/17 08:50 36.5 94 18 191/80 99 Room Air General Appearance: Alert and Oriented x3. NAD. Head: Normocephalic Atraumatic. Eyes: PERRLA, EOMI, conjunctiva and sclera clear Neck: Supple. No carotid bruits noted. No JVD. No HJD. Respiratory: Breath sounds clear to auscultation bilaterally. No w/r/r. Cardiovascular: Reg rate and rhythm. S1 and S2 noted. No murmurs, rubs, gallops. PMI non displace. Abdomen: Normal bowel sounds, soft nontender. no abdominal bruits. Extremities: No edema, no clubbing or cyanosis. distal pulses 2/4 bilaterally. Neuro: No focal deficits. Psychiatric: Normal affect. Data Last Resulted 02/15/17 09:00 Red Blood Count 4.30, Mean Corpuscular Volume 97.2, Mean Corpuscular Hemoglobin 32.8, Mean Corpuscular Hemoglobin Concent 33.7, Mean Platelet Volume 9.8, Neutrophils (%) (Auto) 43.6, Lymphocytes (%) (Auto) 41.7, Monocytes (%) (Auto) 10.6, Eosinophils (%) (Auto) 3.2, Basophils (%) (Auto) 0.7, Neutrophils # (Auto ) 1.88, Lymphocytes # (Auto) 1.80, Monocytes # (Auto) 0.46, Eosinophils # (Auto ) 0.14, Basophils # (Auto) 0.03 Last Resulted 02/15/17 09:00 Past 24 Hours Test 02/15/17 09:00 02/15/17 13:54 Range/Units Creatine Kinase MB 0.8 0.8 0.5-3.6 ng/ml Creatine Kinase MB Ratio 1.0 1.1 0-3.0 Total Creatine Kinase 81 75 26-192 U/L Troponin I < 0.015 < 0.015 0-0.045 ng/ml Imaging: Chest x-ray within normal limits EKG: As per history of present illness Telemetry reviewed: Sinus rhythm with occasional PVCs Assessment & Plan Impression: 66-year-old female 1. Chest discomfort, somewhat atypical for angina, with negative EKG, negative cardiac enzymes 2 2. History of hypertension 3. Hypertensive response to exercise Discussion and recommendations: The patient was seen prior to, during, and post an exercise stress echocardiogram. The resting wall motion was normal, with no significant wall motion abnormalities. No significant valvular heart disease was noted. The patient exercised into stage II and standard Prabhu protocol, with exercise testing terminated due to fatigue. No symptoms suggestive of angina were induced. EKG and echocardiographic responses to exercise were normal. Heart rate response to exercise was normal. The blood pressure response to exercise was hypertensive. The patient presented on exercise stress echocardiogram in May 2016, this was in the setting of gastrointestinal illness with vomiting, and her symptoms were not similar to what she felt today. Is noted that she had occasional ventricular ectopy at rest and at lower levels of exercise but increased with per aggressive exercise and returned in the postexercise recovery interval. No sustained arrhythmias were noted. Stress test is negative for inducible ischemia. 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 I discussed this with her, and I recommend the addition of amlodipine 5 mg by mouth daily. Patient can follow-up with her primary care provider regarding hypertension. She was counseled to watch out for lower leg edema which could be a side effect of the amlodipine. Anticipate however that she will tolerate this well as the edema side effects will be counteracted by her HCTZ. If amlodipine is not tolerated, future considerations include adding beta juan jose therapy such as metoprolol to carvedilol for both blood pressure treatment and suppression of her a synthetic PVCs. Patient stable for discharge from my standpoint. Blaise Haynes DO
[2017-02-15] MEDS ORDERED: AMLODIPINE BESYLATE 5 MG TAB PO ONE (16:45)
--- NOTE | 2017-02-15 16:50 | Discharge Summary ---
Discharge Summary Date of Service Feb 15, 2017. Discharge Summary Admission Date: Feb 15, 2017 at 12:30 Discharge Disposition: Home Principal Diagnosis: atypical chest pain, hypertension Procedures: stress echocardiogram Consultations: Cardiology consultation Impression: 66-year-old female 1. Chest discomfort, somewhat atypical for angina, with negative EKG, negative cardiac enzymes 2 2. History of hypertension 3. Hypertensive response to exercise Discussion and recommendations: The patient was seen prior to, during, and post an exercise stress echocardiogram. The resting wall motion was normal, with no significant wall motion abnormalities. No significant valvular heart disease was noted. The patient exercised into stage II and standard Prabhu protocol, with exercise testing terminated due to fatigue. No symptoms suggestive of angina were induced. EKG and echocardiographic responses to exercise were normal. Heart rate response to exercise was normal. The blood pressure response to exercise was hypertensive. The patient presented on exercise stress echocardiogram in May 2016, this was in the setting of gastrointestinal illness with vomiting, and her symptoms were not similar to what she felt today. Is noted that she had occasional ventricular ectopy at rest and at lower levels of exercise but increased with per aggressive exercise and returned in the postexercise recovery interval. No sustained arrhythmias were noted. Stress test is negative for inducible ischemia. I recommend more aggressive treatment of her blood pressure in terms of chcf risk factor modification. I discussed this with her, and I recommend the addition of amlodipine 5 mg by mouth daily. Patient can follow-up with her primary care provider regarding hypertension. She was counseled to watch out for lower leg edema which could be a side effect of the amlodipine. Anticipate however that she will tolerate this well as the edema side effects will be counteracted by her HCTZ. If amlodipine is not tolerated, future considerations include adding beta juan jose therapy such as metoprolol to carvedilol for both blood pressure treatment and suppression of her a synthetic PVCs. Patient stable for discharge from my standpoint. Blaise Haynes, DO Medication Reconciliation New Medications: Amlodipine Besylate (Amlodipine Besylate) 5 Mg Tab 5 MG PO QAM for 30 Days, #30 TAB Continued Medications: Aspirin (Aspirin) 325 Mg Tab 650 MG PO UD Hnsbsei-Fdxtrejdn-Bpom (Calcium & Magnesium + Zin 334-134-5 mg) 1 Tab Tab 1 TAB PO DAILY Cholecalciferol (Vitamin D3) 2,000 Unit Cap 2000 UNITS PO DAILY, CAP 3 Refills Hctz/Losartan (Hyzaar 25MG/100MG) Tab 1 TAB PO DAILY, #90 TAB Hctz/Losartan (Hyzaar 12.5MG/50MG) Tab 1 TAB PO HS, TAB Multivitamin (Multivitamin) Tab 1 TAB PO DAILY, TAB Admission Information HPI (per Admitting provider): 66 year old F with history of HTN on Losartan-HCTZ for hypertension. Was seen in May 2016 for chest pain and epigastric pain with below unremarkable stress test Nonischemic exercise stress echocardiogram. No arrhythmias. Normal HR and BP response to exercise. Markedly reduced exercise tolerance. At rest, normal LV chamber size and wall thickness. Normal systolic function, EF 55-60% No segmental left ventricular wall motion abnormalities are noted. Grade II diastolic dysfunction. No significant valvular pathology Patient returns to the ED today after experiencing left chest pain beneath left breast. Patient also reports she had 4 alcoholic beverages yesterday night for a celebration and this alcohol use is not typically for her. When she measured her blood pressure, it was elevated. She took 2 aspirins and did not miss her blood pressure medications. Left sided chest pain resolved in 20 minutes as per patient. Denies palpitations or shortness of breath when she had pain symptoms. Presented to the ED with blood pressure 153/95., HR 98 HR. EKG 91 beats per minute . Sinus rhythm with occasional Premature ventricular complexes Otherwise normal EKG. Troponin at 9 AM negative. CXR The lungs are clear. Cardiac silhouette is normal in size. No pleural effusions. No pneumothorax. Patient seen by hospitalist medical team. Denies chest pain at present. Breathing comfortably on room air. Patient reports that she is trying to return home today to take care of ailing family member. She agrees for some further workup Physical Exam (per Admitting): General Appearance: no apparent distress Head: normocephalic, atraumatic Eyes: normal inspection, EOMI, sclerae normal ENT: normal ENT inspection, hearing grossly normal, pharynx normal Neck: supple, no JVD, trachea midline Respiratory/Chest: chest non-tender, lungs clear, normal breath sounds, no respiratory distress, no accessory muscle use Cardiovascular: regular rate, rhythm, no edema, no JVD, no murmur, normal peripheral pulses Abdomen/GI: normal bowel sounds, non tender, soft Back: normal inspection, no CVA tenderness, no muscle spasm, normal range of motion Extremities/Musculoskelatal: normal inspection, no calf tenderness, normal capillary refill, no pedal edema, normal range of motion Neurologic/Psych: no motor/sensory deficits, alert, normal reflexes Skin: normal color, warm/dry, no rash Hospital Course Patient presented to hospital for chest pain. Was hypertensive . Had negative EKG and 2 negative troponins, and stress echocardiogram negative for coronary artery disease but became hypertensive during stress echocardiogram As per cardiology consultation, patient to be discharged with additional blood pressure medication of amlodipine 5 mg daily Follow up with primary care Dr. Dumont on Wednesday02/19/17 at 12:45 PM Total time spent on discharge = 35 minutes This includes examination of the patient, discharge planning, medication reconciliation, and communication with other providers. Discharge Instructions Patient presented to hospital for chest pain. Was hypertensive . Had negative EKG and 2 negative troponins, and stress echocardiogram negative for coronary artery disease but became hypertensive during stress echocardiogram As per cardiology consultation, patient to be discharged with additional blood pressure medication of amlodipine 5 mg daily Follow up with primary care Dr. Dumont on Wednesday02/19/17 at 12:45 PM
[2017-02-15] MEDS ORDERED: NRV5 PO (16:59)
[2017-02-15] MEDS ORDERED: IV FLUIDS COMPLETED PRN (17:00)
--- NOTE | 2017-02-15 17:00 | Discharge Instructions ---
Discharge Instructions Date of Service Feb 15, 2017. Admission Reason for Admission: Substernal Chest Pain Discharge Discharge Diagnosis / Problem: atypical chest pain, hypertension Discharge Goals Goal(s): Improve function Activity Recommendations Activity Limitations: resume your previous activity . Instructions / Follow-Up Instructions / Follow-Up Patient presented to hospital for chest pain. Was hypertensive . Had negative EKG and 2 negative troponins, and stress echocardiogram negative for coronary artery disease but became hypertensive during stress echocardiogram As per cardiology consultation, patient to be discharged with additional blood pressure medication of amlodipine 5 mg daily Follow up with primary care Dr. Dumont on Wednesday02/19/17 at 12:45 PM Current Hospital Diet Patient's current hospital diet: Discharge Diet Recommended Diet: Regular Diet Pending Studies Studies pending at discharge: no Laboratory Results 02/15/17 09:00 Red Blood Count 4.30, Mean Corpuscular Volume 97.2, Mean Corpuscular Hemoglobin 32.8, Mean Corpuscular Hemoglobin Concent 33.7, Mean Platelet Volume 9.8, Neutrophils (%) (Auto) 43.6, Lymphocytes (%) (Auto) 41.7, Monocytes (%) (Auto) 10.6, Eosinophils (%) (Auto) 3.2, Basophils (%) (Auto) 0.7, Neutrophils # (Auto ) 1.88, Lymphocytes # (Auto) 1.80, Monocytes # (Auto) 0.46, Eosinophils # (Auto ) 0.14, Basophils # (Auto) 0.03 02/15/17 09:00 Test 02/15/17 09:00 02/15/17 13:54 White Blood Count 4.32 K/uL (4.8-10.8) Red Blood Count 4.30 M/uL (4.2-5.4) Hemoglobin 14.1 g/dL (12.0-16.0) Hematocrit 41.8 % (37-47) Mean Corpuscular Volume 97.2 fL (80-100) Mean Corpuscular Hemoglobin 32.8 pg (25-34) Mean Corpuscular Hemoglobin Concent 33.7 g/dl (32-36) Platelet Count 219 K/uL (130-400) Mean Platelet Volume 9.8 fL (7.4-10.4) Neutrophils (%) (Auto) 43.6 % Lymphocytes (%) (Auto) 41.7 % Monocytes (%) (Auto) 10.6 % Eosinophils (%) (Auto) 3.2 % Basophils (%) (Auto) 0.7 % Neutrophils # (Auto) 1.88 K/uL (1.4-6.5) Lymphocytes # (Auto) 1.80 K/uL (1.2-3.4) Monocytes # (Auto) 0.46 K/uL (0.11-0.59) Eosinophils # (Auto) 0.14 K/uL (0-0.5) Basophils # (Auto) 0.03 K/uL (0-0.2) RDW Standard Deviation 44.2 fL (36.4-46.3) RDW Coefficient of Variation 12.4 % (11.5-14.5) Immature Granulocyte % (Auto) 0.2 % Immature Granulocyte # (Auto) 0.01 K/uL (0.00-0.02) D-Dimer 270 ug/L FEU (0-500) Anion Gap 10.0 mmol/L (3-11) Est Creatinine Clear Calc Drug Dose 68.1 ml/min Estimated GFR () 89.1 Estimated GFR (Non- 76.9 BUN/Creatinine Ratio 16.0 (10-20) Calcium Level 8.8 mg/dl (8.5-10.1) Total Creatine Kinase 75 U/L (26-192) Creatine Kinase MB 0.8 ng/ml (0.5-3.6) Creatine Kinase MB Ratio 1.1 (0-3.0) Troponin I < 0.015 ng/ml (0-0.045) Hepatitis C Antibody Screen NEG (NEG) Medical Emergencies . Who to Call and When: Medical Emergencies: If at any time you feel your situation is an emergency, please call 911 immediately. . Non-Emergent Contact Non-Emergency issues call your: Primary Care Provider . . "Provider Documentation" section prepared by Rod Mclain. . VTE Core Measure Inpt VTE Proph given/why not?: SCD's
--- NOTE | 2017-02-15 17:06 | EXERCISE STRESS ECHO ---
*NOTICE TO RECEIVING DEMOCRAT AGENCY This information is strictly Confidential and protected under [place] law. [place] law prohibits you from making any further disclosure of this information unless further disclosure is expressly permitted by the written consent of the person to whom it pertains or is authorized by law. A general authorization for the release of medical or other information is not sufficient for this purpose. Hospital accepts no responsibility if the information is made available to any other person, INCLUDING THE PATIENT. Interpretation Summary * Name: DARIO SANTACRUZ Study Date: 02/15/2017 02:51 PM BP: 128/70 mmHg * Patient Location: [facility]\S\N286\S\1 HR: 82 * : 1950 (M/d/yyyy) Gender: Female Height: 64 in * Age: 66 yrs Ethnicity: [place] Weight: 167 lb * Ordering Physician: Kaitlyn Sullivan * Referring Physician: Self, Referred * Performed By: Marjorie Lopez RCS * * Reason For Study: Chest Pain * BSA: 1.8 m2 * -- Conclusions -- * STRESS STUDY: * Normal exercise stress echocardiogram. * No echocardiographic or EKG evidence of myocardial ischemia having achieved heart rate adequate for diagnostic purposes. * There was an accelarated heart rate response to exercise. * The blood pressure response to exercise was hypertensive. * RESTING STUDY: * There is mild mitral regurgitation. Procedure Details * ECHOEX, CPT #[id number] * ECHO COLOR FLOW, CPT #[id number] * ECHO DOPPLER, CPT #[id number] * A contrast injection of Definity was performed to improve assessment of LV function. * Contrast was injected into an intravenous site in the left arm. * One vial of Definity ultrasound contrast was diluted in normal saline to a total volume of 10 ml. A total of '4' ml of solution was administered during imaging. * Lot # [id number] of Definity utilized for procedure. * Expiration date 1DEC18. * The attending nurse who injected the contrast agent was Spring Hunter RN. Left Ventricle * The left ventricle is normal in size. * There is mild concentric left ventricular hypertrophy. * Ejection Fraction = 60-65%. * Left ventricular systolic function is normal. * Resting wall motion: Normal. Stress wall motion: Appropriate increase in Left ventricular systolic function and decrease in cavity size. No stress induced segmental wall motion abnormalities. Right Ventricle * The right ventricle is normal in size and function. Atria * The left atrial size is normal. * Right atrial size is normal. * No ASD detected; PFO is not assessed. Mitral Valve * The mitral valve is normal. * There is no mitral valve stenosis. * There is mild mitral regurgitation. Tricuspid Valve * The tricuspid valve is normal. * There is no tricuspid stenosis. * Significant tricuspid regurgitation is absent. * Doppler findings do not suggest pulmonary hypertension. Aortic Valve * The aortic valve is trileaflet. * No hemodynamically significant valvular aortic stenosis. * No aortic regurgitation is present. Pulmonic Valve * The pulmonic valve is not well visualized. Great Vessels * The aortic root is normal size. Pericardium * There is no pericardial effusion. Stress Parameters * Normal baseline electrocardiogram. * The stress ECG response was normal * Occasoinal unifocal PVCs were present at rest and low level of exercise that were reduced in frequency with progressive exercise and returns in the post exercise recovery interval. There were no sustained arrhythmias. * The stress portion of this study was personally supervised by the undersigned interpreting physician. * Rest heart rate was '82' BPM. * Rest blood pressure was '128/70' * Maximum heart rate achieved was 171 bpm. * Maximum heart rate was 112 % of maximum age-predicted heart rate. * Maximum blood pressure was '218/83' * Total exercise time was '4:38' * Maximum exercise MET level achieved was '6.5' METS * Maximum treadmill speed was '2.5' miles per hour. * Maximum treadmill elevation was '12'% grade. * Exercise was terminated due to 'fatigue after achieving target heart rate' Left Ventricular Diastolic Function * Grade I diastolic dysfunction, (abnormal relaxation pattern). MMode 2D Measurements and Calculations IVSd 1.0 cm IVSs 1.3 cm LVIDd 3.6 cm LVIDs 2.0 cm LVPWd 0.96 cm LVPWs 1.3 cm IVS/LVPW 1.1 FS 45.3 % EDV(Teich) 53.2 ml ESV(Teich) 12.0 ml EF(Teich) 77.5 % EDV(cubed) 45.3 ml ESV(cubed) 7.4 ml EF(cubed) 83.6 % % IVS thick 30.1 % % LVPW thick 35.2 % LV mass(C)d 104.4 grams LV mass(C)dI 57.6 grams/m\S\2 LV mass(C)s 73.8 grams LV mass(C)sI 40.8 grams/m\S\2 SV(Teich) 41.2 ml SI(Teich) 22.8 ml/m\S\2 SV(cubed) 37.9 ml SI(cubed) 20.9 ml/m\S\2 Ao root diam 2.9 cm Ao root area 6.7 cm\S\2 ACS 1.7 cm LA dimension 3.4 cm asc Aorta Diam 2.6 cm LA/Ao 1.2 EDV(MOD-sp4) 78.5 ml ESV(MOD-sp4) 29.8 ml EF(MOD-sp4) 62.0 % EDV(MOD-sp2) 78.8 ml ESV(MOD-sp2) 24.2 ml EF(MOD-sp2) 69.3 % SV(MOD-sp4) 48.7 ml SI(MOD-sp4) 26.9 ml/m\S\2 SV(MOD-sp2) 54.6 ml SI(MOD-sp2) 30.2 ml/m\S\2 Doppler Measurements and Calculations MV E max norberto 55.0 cm/sec MV A max norberto 87.4 cm/sec MV E/A 0.63 MV P1/2t max norberto 62.0 cm/sec MV P1/2t 73.6 msec MVA(P1/2t) 3.0 cm\S\2 MV dec slope 246.7 cm/sec\S\2 MV dec time 0.24 sec Ao V2 max 128.3 cm/sec Ao max PG 6.6 mmHg Ao max PG (full) 4.0 mmHg LV V1 max PG 2.6 mmHg LV V1 max 80.0 cm/sec PA V2 max 94.3 cm/sec PA max PG 3.6 mmHg TR max norberto 233.6 cm/sec
[2017-02-15 17:10] VITALS: BP 143/99; PULSE 84; TEMP 36.6; O2SAT 98
[2017-02-15] MEDS ORDERED: LOSARTAN/HCTZ 50-12.5 EA TAB PO SCH ×2 (21:00)
[2017-02-16] MEDS ORDERED: LOSARTAN/HCTZ 50-12.5 EA TAB PO SCH (09:00)
[2017-02-16] MEDS ORDERED: ASPIRIN 81 MG ECTAB PO SCH (09:00)
[2017-02-16] MEDS ORDERED: AMLODIPINE BESYLATE 5 MG TAB PO SCH (09:00)
== END 2017-02-15 17:20 | disposition home or self-care (01) ==
LOC: C.EDB 08:37 → ENRESERV 11:51 → C.MED 12:30
PROVIDERS: ADMIT Hospitalist; ATTEND Hospitalist
DX: R07.2 Precordial pain (principal); I10 Essential (primary) hypertension; Z79.899 Other long term (current) drug therapy